=== PATIENT | female | born 1945 | race Caucasian/White ===

== ENCOUNTER 2018-08-05 14:04 | Emergency (ER) | payer BC ==
--- NOTE | 2018-08-05 14:08 | PDOC ---
History of Present Illness - General Chief Complaint: Sore Throat Stated Complaint: SORE THROAT Time Seen by Provider: 08/05/18 14:05 - History of Present Illness Initial Comments: 73 year old female with PMH of HTN, hypothyroidism, and previous breast cancer ( s/p surgery and currently on hormone therapy, remission for >5 years) presenting with productive cough, sore throat, and general fatigue for the past week. Patient states that her cough has been productive of brown sputum and that she has had a fever as high as 101 degrees at home. 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 Denies nausea, vomiting , diarrhea, or other symptoms. 08/05/18 15:54 Past History - Past Medical History Allergies/Adverse Reactions: Allergies Allergy/AdvReac Type Severity Reaction Status Date / Time No Known Allergies Allergy Verified 08/05/18 14:05 Home Medications: Ambulatory Orders Amiloride HCl 2.5 mg PO HS 12/24/12 Atenolol [Tenormin -] 100 mg PO BID 12/24/12 Candesartan Cilexetil [Atacand -] 32 mg PO DAILY 12/24/12 Levothyroxine [Synthroid -] 50 mcg PO DAILY 12/24/12 Torsemide 10 mg PO DAILY 12/24/12 Azithromycin 250 mg PO ONCE #4 tablet 08/05/18 Benzonatate [Tessalon Pearls -] 100 mg PO TID PRN #21 capsule 08/05/18 Cancer: Yes (BREAST) GI Disorders: Yes HTN: Yes Hypercholesterolemia: Yes Thyroid Disease: Yes - Immunization History Td Vaccination: Yes Immunization Up to Date: No - Suicide/Smoking/Psychosocial Hx Smoking Status: No Smoking History: Never smoked Number of Cigarettes Smoked Daily: 0 Review of Systems - Review of Systems Constitutional: No: Chills, Diaphoresis, Fever HEENTM: No: Blurred Vision, Tearing Respiratory: Yes: Cough, Productive cough. No: Shortness of Breath, Wheezing Cardiac (ROS): No: Edema, Irregular Heart Rate, Lightheadedness ABD/GI: No: Constipated, Diarrhea, Nausea, Vomiting : No: Dysuria, Discharge, Frequency Musculoskeletal: No: Back Pain, Joint Pain Integumentary: No: Bruising, Erythema, Flushing Neurological: No: Headache, Numbness, Paresthesia Psychiatric: No: Anxiety, Depression *Physical Exam - Physical Exam General Appearance: Yes: Nourished, Appropriately Dressed. No: Apparent Distress HEENT: positive: EOMI, KAREN, Pharyngeal Erythema, Tonsillar Erythema. negative : Normal ENT Inspection, Tonsillar Exudate Neck: positive: Trachea midline, Normal Thyroid, Supple. negative: Tender, Rigid Respiratory/Chest: positive: Lungs Clear, Normal Breath Sounds. negative: Chest Tender, Respiratory Distress, Accessory Muscle Use Cardiovascular: positive: Regular Rhythm, Regular Rate Gastrointestinal/Abdominal: positive: Normal Bowel Sounds, Flat, Soft. negative : Tender Musculoskeletal: positive: Normal Inspection. negative: Decreased Range of Motion Extremity: positive: Normal Capillary Refill, Normal Inspection, Normal Range of Motion. negative: Tender Integumentary: positive: Normal Color, Dry, Warm Neurologic: positive: Fully Oriented, Alert, Normal Mood/Affect, Normal Response , Motor Strength 5/5 Medical Decision Making - Medical Decision Making 73 year old female with HTN and HLD presenting with cough for the past week. CXR negative and strep swab negative. Patient given one dose of ceftriaxone given she admitted to productive cough. Also given azithromycin 500 mg and outpatient 250 x 4 days. Cassidy mcgowan prescribed PRN and patient DC'd with return precautions and follow up instructions. She was well appearing on DC with VSS. 08/05/18 16:07 *DC/Admit/Observation/Transfer Diagnosis at time of Disposition: Cough - Discharge Dispostion Disposition: HOME Condition at time of disposition: Stable Decision to Admit order: No - Prescriptions Prescriptions: Amoxicillin - [Amoxicillin 250mg Capsule -] 250 mg PO DAILY #4 capsule Azithromycin 250 mg PO ONCE #4 tablet Benzonatate [Tessalon Pearls -] 100 mg PO TID PRN #21 capsule PRN Reason: cough - Referrals Referrals: Kt Pack MD [Staff Physician] - - Patient Instructions Printed Discharge Instructions: DI for Cough -- Adult Additional Instructions: Please take your antibiotics once daily and please try to drink plenty of fluids. Please follow up with Dr. Pack or your PCP within a week. Please return to the ED if you have new or worsening symptoms. - Post Discharge Activity
[2018-08-05] MEDS ORDERED: ACETAMINOPHEN 500 MG TABLET (FP) PO ONE (14:09)
[2018-08-05 14:23] VITALS: BP 128/66; PULSE 77; TEMP 100.6; BMI 29.2
[2018-08-05] MEDS ORDERED: AZITHROMYCIN 250 MG TABLET PO ONE (15:25)
[2018-08-05] MEDS ORDERED: CEFTRIAXONE 1,000 MG in DEXTROSE 5%-WATER - 50 ML IVPB ONE (15:30)
[2018-08-05] MEDS ORDERED: AZITHROMYCIN 500 MG TABLET ONE (15:41)
[2018-08-05] MEDS ORDERED: cefTRIAXone SODIUM 1 GM VIAL ONE (15:41)
--- NOTE | 2018-08-05 15:47 | PDOC ---
Attending Attestation - Resident Resident Name: García Colindres - ED Attending Attestation I have performed the following: I have examined & evaluated the patient, The case was reviewed & discussed with the resident, I agree w/resident's findings & plan, Exceptions are as noted - HPI HPI: 08/05/18 15:42 73 F with h/o HTN, HLD, hypothyroid, presenting with 1 week of cough and sore throat. Pt reports cough productive of brownish sputum, as well as sore throat and hoarseness in her voice. Pt states that she felt warm last night but was unable to take her temperature. Pt denies CP/SOB. Denies CULVER/neck pain. Denies abdominal pain/N/V/D. Denies dysuria. Denies flank pain. - Physicial Exam PE: 08/05/18 15:45 "GENERAL: Awake, alert, and fully oriented, in no acute distress. HEAD: No signs of trauma EYES: PERRLA, EOMI, sclera anicteric, conjunctiva clear ENT: Auricles normal inspection, hearing grossly normal, nares patent, oropharynx clear without exudates. Moist mucosa NECK: Nontender, no stepoffs, Normal ROM, supple, no lymphadenopathy, JVD, or masses LUNGS: Breath sounds equal, clear to auscultation bilaterally. No wheezes, and no crackles HEART: Regular rate and rhythm, normal S1 and S2, no murmurs, rubs or gallops ABDOMEN: Soft, nontender, normoactive bowel sounds. No guarding, no rebound. No masses EXTREMITIES: Normal range of motion, no edema. No clubbing or cyanosis. No cords, erythema, or tenderness NEUROLOGICAL: Cranial nerves II through XII intact. 5/5 strength and sensation in all extremities, Normal speech, normal gait, normal cerebellar function SKIN: Warm, Dry, normal turgor, no rashes or lesions noted. - Medical Decision Making 08/05/18 15:45 73 F with cough, sore throat. Febrile in ED. Clinically concerning for PNA. Possible viral URI. - CXR with no obvious consolidation on my read - Rapid strep negative Will empirically cover for CAP given clinical picture of fever + productive cough. Pt otherwise very well appearing with stable vitals. Pt is well appearing, with normal vitals. Clinically stable for DC at this time. I discussed the physical exam findings, ancillary test results and final diagnoses with the patient. I answered all of the patient's questions. The patient was satisfied with the care received and felt comfortable with the discharge plan and treatment plan. The patient agrees to follow up with the primary care physician within 24-72 hours.
== END 2018-08-05 16:00 | disposition home or self-care (01) ==
LOC: FER 14:04
DX: R05 Cough (principal); I10 Essential (primary) hypertension; E78.5 Hyperlipidemia, unspecified
CPT/HCPCS: 71046-TC-FY; 87070; 87880; 99281-25